=== PATIENT | male | born 1985 | race Caucasian/White ===

== ENCOUNTER 2016-06-04 18:33 | Inpatient (IN) | payer MEDICAID ==
[~2016-06-04] VITALS: Ht 170.2 cm; Wt 122.9 kg
[2016-06-04] MEDS: NICOTINE 21 MG/24 HR TRANSDERM SCH (09:00)
[2016-06-04] MEDS ORDERED: HALOPERIDOL 5 MG TAB PO PRN (19:55)
[2016-06-04] MEDS ORDERED: DIPHENHYDRAMINE 50 MG CAP PO PRN (19:55)
[2016-06-04] MEDS ORDERED: MAG HYDROX 30 ML UDC PO PRN (19:55)
[2016-06-04] MEDS ORDERED: HALOPERIDOL 5 MG/ML VIAL IM PRN (19:55)
[2016-06-04] MEDS ORDERED: LORAZEPAM 2 MG/ML VIAL IM PRN (19:55)
[2016-06-04] MEDS ORDERED: ALU/MAG/SIM 30 ML UDC PO PRN (19:55)
[2016-06-04] MEDS ORDERED: ACETAMINOPHEN 325 MG TAB PO PRN (19:55)
[2016-06-04] MEDS ORDERED: LORAZEPAM 2 MG TAB PO PRN (19:55)
[2016-06-04] MEDS ORDERED: DIPHENHYDRAMINE 50 MG/ML VIAL IM PRN (19:55)
[2016-06-04 20:28] VITALS: Ht 170.2 cm; Wt 122.9 kg
[2016-06-04 20:29] VITALS: BP_SYST 143; RESP 18; TEMP 98.5
[2016-06-05] MEDS: NICOTINE 21 MG/24 HR TRANSDERM SCH (09:00)
[2016-06-05 09:15] VITALS: BP_SYST 151; RESP 20; TEMP 97.8
[2016-06-05] MEDS: BUSPIRONE HCL 5 MG TAB PO SCH ×2 (11:55→17:21)
[2016-06-05] MEDS: BUPROPION XL 150 MG TAB PO SCH (11:55)
[2016-06-05] MEDS: OXCARBAZEPINE 300 MG TAB PO SCH ×2 (11:56→21:32)
[2016-06-05] MEDS: hydrOXYzine PAM 50 MG CAP PO SCH ×3 (11:57→21:32)
[2016-06-05 16:11] VITALS: BP_SYST 151; RESP 20; TEMP 97.8
[2016-06-05 16:12] VITALS: BP_SYST 151; RESP 20; TEMP 97.8
[2016-06-05 19:04] VITALS: BP_SYST 151; RESP 18; TEMP 98.4
[2016-06-05] MEDS: TRAZODONE 50 MG TAB PO PRN (22:00)
[2016-06-06] MEDS: BUSPIRONE HCL 5 MG TAB PO SCH ×2 (07:16→16:03)
[2016-06-06 07:31] VITALS: BP_SYST 154; RESP 18; TEMP 97.7
[2016-06-06] MEDS: hydrOXYzine PAM 50 MG CAP PO SCH ×3 (08:19→20:53)
[2016-06-06] MEDS: OXCARBAZEPINE 300 MG TAB PO SCH ×2 (08:20→20:53)
[2016-06-06] MEDS: BUPROPION XL 150 MG TAB PO SCH (08:20)
[2016-06-06 16:01] VITALS: BP_SYST 140; RESP 16
[2016-06-06] MEDS: LISINOPRIL 10 MG TAB PO SCH (16:02)
[2016-06-06 19:00] VITALS: BP_SYST 145; RESP 18; TEMP 98.3
[2016-06-06] MEDS: TRAZODONE 50 MG TAB PO PRN (20:53)
[2016-06-07] MEDS: BUSPIRONE HCL 5 MG TAB PO SCH ×2 (08:00→15:23)
[2016-06-07] MEDS: LISINOPRIL 10 MG TAB PO SCH (08:47)
[2016-06-07] MEDS: hydrOXYzine PAM 50 MG CAP PO SCH ×3 (08:47→20:59)
[2016-06-07] MEDS: OXCARBAZEPINE 300 MG TAB PO SCH ×2 (08:47→20:59)
[2016-06-07] MEDS: BUPROPION XL 150 MG TAB PO SCH (08:47)
[2016-06-07 09:15] VITALS: BP_SYST 134; RESP 20; TEMP 98.1
[2016-06-07 19:45] VITALS: BP_SYST 109; RESP 16; TEMP 97.5
[2016-06-07] MEDS: TRAZODONE 50 MG TAB PO PRN (21:56)
[2016-06-08] MEDS: BUSPIRONE HCL 5 MG TAB PO SCH (07:04)
[2016-06-08 07:34] VITALS: BP_SYST 134; RESP 20; TEMP 98.1
[2016-06-08] MEDS: hydrOXYzine PAM 50 MG CAP PO SCH (08:21)
[2016-06-08] MEDS: BUPROPION XL 150 MG TAB PO SCH (08:21)
[2016-06-08] MEDS: LISINOPRIL 10 MG TAB PO SCH (08:21)
[2016-06-08] MEDS: OXCARBAZEPINE 300 MG TAB PO SCH (08:21)
[2016-06-08 08:50] VITALS: BP_SYST 134; RESP 20; TEMP 98.1
== END 2016-06-08 11:13 | disposition home or self-care (01) | DRG 885 ==
LOC: EMR 19:19 → PSY 19:30
PROVIDERS: ADMIT Psychiatry & Neurology Psychiatry; ATTEND Psychiatry & Neurology Psychiatry